=== PATIENT | female | born 1945 | race Caucasian/White ===

== ENCOUNTER 2024-09-18 12:35 | Inpatient (IN) | payer OTHER ==
[~2024-09-18] VITALS: Ht 160 cm; Wt 45.4 kg
[~2024-09-18 12:35] MED LIST: OLAN2.5 PO; OLAN5 PO; [UNRECOGNIZED DRUG - OTHER] PO; [UNRECOGNIZED DRUG - REMARK]
[2024-09-18] MEDS ORDERED: OLANZAPINE1024 PO (13:16)
[2024-09-18] MEDS ORDERED: [UNRECOGNIZED DRUG - CODE] PO (13:16)
[2024-09-18 13:38] LABS: BASOPHILS ABSOLUTE AUTO 0.02 K/mm3 (0.00-0.23); BASOPHILS PERCENT AUTO 0 % (0-2); EOSINOPHILS PERCENT AUTO 0 % (0-6); Hemoglobin 12.9 g/dL (11.5-16.0); IMMATURE GRAN ABSOLUTE AUTO 0.03 K/mm3 (0.00-0.10); IMMATURE GRAN PERCENT AUTO 0 % (0-1); LYMPHOCYTES ABSOLUTE AUTO 0.72 K/mm3 (0.84-5.20); LYMPHOCYTES PERCENT AUTO 6 % (21-46); MONOCYTES ABSOLUTE AUTO 1.11 K/mm3 (0.16-1.47); MONOCYTES PERCENT AUTO 10 % (4-13); Mean Corpuscular HGB 30.9 pg (26.0-34.0); Mean Corpuscular HGB Conc 33.1 g/dL (31.5-36.5); Mean Corpuscular Volume 94 fL (80-100); Mean Platelet Volume 9.8 fL (9.1-12.4); NEUTROPHILS ABSOLUTE AUTO 9.67 K/mm3 (1.96-9.15); NEUTROPHILS PERCENT AUTO 84 % (41-73); Platelet Count 395 K/mm3 (150-400); RDW Coefficient Variation 12.9 % (11.7-14.2); RDW Standard Deviation 44.5 fL (35.1-46.3); Red Blood Cell Count 4.17 M/mm3 (3.80-5.20); White Blood Cell Count 11.55 K/mm3 (4.00-11.30)
[2024-09-18 13:50] LABS: Source, Urine Foley catheter
[2024-09-18 14:02] LABS: Albumin, Blood 3.4 g/dL (3.4-5.0); Albumin/Globulin Ratio 0.9 (0.8-1.8); Bilirubin, Total 0.8 mg/dL (0.1-1.0); Bun/Creatinine Ratio 63.1 (12.0-20.0); Calcium, Blood 10.5 mg/dL (8.5-10.1); Creatinine, Blood 0.63 mg/dL (0.40-1.00); Globulin, Blood 3.9 g/dL (2.2-4.0); Potassium, Blood 4.2 mmol/L (3.5-5.5); Total Protein, Blood 7.3 g/dL (6.4-8.2)
[2024-09-18 14:02] LABS: Appearance, Urine Clear (Clear); Bilirubin, Urine Neg (Neg); Blood, Urine 2+ (Neg); Color, Urine Yellow (P-Yellow); Glucose Qualitative, Urine Neg (Neg); Ketones, Urine 2+ (Neg); Leukocyte Esterase, Urine Neg (Neg); Nitrite, Urine Neg (Neg); Protein, Urine 2+ (Neg); Specific Gravity, Urine 1.025 (1.003-1.022); Urobilinogen, Urine NORM (Normal)
[2024-09-18 14:10] LABS: Bacteria Few /hpf; Squamous Epithelial Cells Few /hpf (Few)
[2024-09-18] MEDS ORDERED: NS 1,000 ML IV SCH (14:25)
[2024-09-18 15:45] LABS: Lithium 0.35 mmol/L (0.60-1.20)
[2024-09-18] MEDS ORDERED: FLU VACC TS2024-25(6MOS UP)/PF 45 MCG/0.5 ML SYRINGE IM SCH (17:30)
[2024-09-18] MEDS ORDERED: Morphine Sulfate 4 MG/1 ML Injection IV PRN (17:30)
[2024-09-18] MEDS ORDERED: Lactated Ringer's 1,000 ML IV SCH ×2 (17:35)
[2024-09-18] MEDS ORDERED: OLANZapine 10 MG Tab PO SCH (18:00)
[2024-09-18 19:01] VITALS: BP 127/74
[2024-09-18] MEDS ORDERED: Tranexamic Acid 100 ML IV SCH (19:35)
[2024-09-18] MEDS ORDERED: Lithium Carbonate 300 MG Cap PO SCH (21:00)
[2024-09-18 23:44] LABS: Source, Urine Foley catheter
[2024-09-18 23:57] LABS: Bilirubin, Urine Neg (Neg); Blood, Urine 1+ (Neg); Glucose Qualitative, Urine Neg (Neg); Ketones, Urine 2+ (Neg); Leukocyte Esterase, Urine 1+ (Neg); Nitrite, Urine Neg (Neg); Protein, Urine 2+ (Neg); Urobilinogen, Urine NORM (Normal)
[2024-09-19] VITALS (20 sets, daily range): BP systolic 94–139; BP diastolic 62–80
[2024-09-19 00:03] LABS: Appearance, Urine Clear (Clear); Color, Urine Pale Yellow (P-Yellow)
[2024-09-19 00:04] LABS: Bacteria Rare /hpf; Red Blood Cells, Urine 0-2 /hpf (0-2); Squamous Epithelial Cells Not Seen /hpf (Few)
--- NOTE | 2024-09-19 05:42 | NUR ---
NOC SUMMARY- PT ARRIVED TO ROOM IN NO DISTRESS. PT HAS DENIED PAIN THROUGHOUT SHIFT. PT FOUND TO BE RETAINING URINE. PROVIDER CALLED AND ORDERED GONG TO BE PLACED. BLADDER SCAN SHOWED >900 ML. PT GONG DRAINING TO GRAVITY. PT HAD CHG WIPE DOWN, NARES AND SWISH COMPLETED. PT PROVIED SNACKS BUT HAS BEEN NPO SINCE WI. CALL LIGHT IN REACH AND BED ALARM ON.
[2024-09-19] MEDS ORDERED: CeFAZolin Sodium 2,000 MG in NS 100 ML IV SCH (06:00)
[2024-09-19] MEDS ORDERED: Vancomycin HCL 1,000 MG in NS 250 ML IV SCH (06:00)
[2024-09-19] MEDS ORDERED: Tranexamic Acid 100 ML IV SCH (06:00)
[2024-09-19 06:12] LABS: BASOPHILS ABSOLUTE AUTO 0.03 K/mm3 (0.00-0.23); BASOPHILS PERCENT AUTO 0 % (0-2); EOSINOPHILS ABSOLUTE AUTO 0.01 K/mm3 (0.00-0.68); EOSINOPHILS PERCENT AUTO 0 % (0-6); Hematocrit 36.4 % (33.0-51.0); Hemoglobin 11.8 g/dL (11.5-16.0); IMMATURE GRAN ABSOLUTE AUTO 0.05 K/mm3 (0.00-0.10); IMMATURE GRAN PERCENT AUTO 1 % (0-1); LYMPHOCYTES ABSOLUTE AUTO 1.23 K/mm3 (0.84-5.20); LYMPHOCYTES PERCENT AUTO 13 % (21-46); MONOCYTES ABSOLUTE AUTO 1.22 K/mm3 (0.16-1.47); MONOCYTES PERCENT AUTO 13 % (4-13); Mean Corpuscular HGB 30.6 pg (26.0-34.0); Mean Corpuscular HGB Conc 32.4 g/dL (31.5-36.5); Mean Corpuscular Volume 95 fL (80-100); Mean Platelet Volume 9.6 fL (9.1-12.4); NEUTROPHILS ABSOLUTE AUTO 7.15 K/mm3 (1.96-9.15); NEUTROPHILS PERCENT AUTO 74 % (41-73); Platelet Count 267 K/mm3 (150-400); RDW Coefficient Variation 13.1 % (11.7-14.2); RDW Standard Deviation 45.1 fL (35.1-46.3); Red Blood Cell Count 3.85 M/mm3 (3.80-5.20); White Blood Cell Count 9.69 K/mm3 (4.00-11.30)
[2024-09-19 06:28] LABS: Bun/Creatinine Ratio 64.2 (12.0-20.0); Calcium, Blood 9.8 mg/dL (8.5-10.1); Creatinine, Blood 0.67 mg/dL (0.40-1.00); Potassium, Blood 3.5 mmol/L (3.5-5.5)
[2024-09-19] MEDS ORDERED: Enoxaparin 40 MG/0.4 ML SYR SC SCH (09:00)
[2024-09-19] MEDS ORDERED: Lactated Ringer's 1,000 ML IV SCH (09:55)
[2024-09-19] MEDS ORDERED: CeFAZolin Sodium 2,000 MG VIAL ONE (10:18)
[2024-09-19] MEDS ORDERED: propofoL 20 ML IV ONE (10:46)
[2024-09-19] MEDS ORDERED: FentaNYL Citrate 50 MCG/ML 2 ML Injection ONE (10:47)
--- NOTE | 2024-09-19 10:52 | NUR ---
History, Chart, Medications and Allergies reviewed before start of procedure. Patient confirms NPO status and agrees with scheduled surgery. Pre-Op teaching done. Pt verbalizes understanding. GONG CATH TO GRAVITY, BRUISING NOTED TO R THIGH, PT SLEEPY BUT ORIENTED TO ALL QUESTIONS.
[2024-09-19] MEDS ORDERED: Ropivacaine 0.5% HCl/Pf 123.125 MG,EPINEPHrine HCL 0.25 MG,Ketorolac Tromethamine 15 MG... INFIL SCH (11:10)
[2024-09-19] MEDS ORDERED: Ondansetron HCl 2 MG / ML 2ML Vial IV PRN (11:30)
[2024-09-19] MEDS ORDERED: Acetaminophen 325 MG TABLET PO PRN (11:30)
[2024-09-19] MEDS ORDERED: Naloxone HCl 0.4MG / ML 1ML Vial IV PRN (11:30)
[2024-09-19] MEDS ORDERED: NS KCl 20mEq 1,000 ML IV SCH (11:30)
[2024-09-19] MEDS ORDERED: Ondansetron 4 MG TAB PO PRN (11:35)
[2024-09-19] MEDS ORDERED: FLU VACC TS2024-25(6MOS UP)/PF 45 MCG/0.5 ML SYRINGE IM SCH (11:35)
[2024-09-19] MEDS ORDERED: HYDROcodone 5-APAP 325 TAB PO PRN (11:35)
[2024-09-19] MEDS ORDERED: Bisacodyl 10 MG Supp PR PRN (11:35)
[2024-09-19] MEDS ORDERED: HYDROmorphone HCl/Pf 1MG SYR IV PRN (11:40)
[2024-09-19] MEDS ORDERED: Metoclopramide HCl 10 MG Tab PO PRN (11:40)
[2024-09-19] MEDS ORDERED: Magnesium Hydroxide Conc 10 ML UDC PO PRN (11:40)
[2024-09-19] MEDS ORDERED: Ketorolac Tromethamine 15mg Vial IV PRN (11:45)
[2024-09-19] MEDS ORDERED: Naproxen 500 MG Tab PO PRN (11:50)
[2024-09-19] MEDS ORDERED: Dexamethasone Sod Phos 10 MG/ML 1ML VIAL ONE (11:57)
[2024-09-19] MEDS ORDERED: Ondansetron HCl 2 MG / ML 2ML Vial ONE (11:57)
[2024-09-19] MEDS ORDERED: Sugammadex Sodium 200 MG/2ML SDV (100 MG/ML) ONE (13:06)
[2024-09-19] MEDS ORDERED: Phenylephrine HCl 10mg/ml 1 ml Vial ONE (13:16)
--- NOTE | 2024-09-19 13:42 | NUR ---
09/19/24 1342 Arnaldo,Elisa SKIN TEAR NOTED ON PATIENT'S LEFT HIP PRIOR TO TRANSFERING FROM OR TABLE TO BED AFTER SURGERY. SKIN TEAR WAS CLEANED WITH CHLORAHEXIDINE AND DRESSED WITH A MEPILEX DRESSING.
[2024-09-19] MEDS ORDERED: Tranexamic Acid 100 ML IV ONE (14:50)
--- NOTE | 2024-09-19 17:46 | NUR ---
PATIENT IS ALERT AND ORIENTED, SOME FORGETFULLNESS. POD 0 OF RIGHT AVIVA HIP. PATIENT IS TOLERATING APPLESAUCE AND WATER SO FAR. NO COMPLAINTS OF PAIN. BUSTER HOSE AND SCDS IN PLACE. UPDATE GIVEN TO BOTH OF THE PATIENTS SISTERS OVER THE PHONE. SHE HAS NOT WORKED WITH PT OR OT TODAY. BEDREST AT THIS TIME. GONG IN PLACE, WITH AN ORDER TO DC ON POD 2. ON RA. VSS. WILL CONTINUE TO MONITOR
[2024-09-19] MEDS ORDERED: Docusate Sodium 100 MG Cap PO SCH (21:00)
[2024-09-20 04:54] VITALS: BP 102/63
[2024-09-20 05:12] LABS: BASOPHILS ABSOLUTE AUTO 0.01 K/mm3 (0.00-0.23); BASOPHILS PERCENT AUTO 0 % (0-2); EOSINOPHILS PERCENT AUTO 0 % (0-6); Hematocrit 28.8 % (33.0-51.0); Hemoglobin 9.5 g/dL (11.5-16.0); IMMATURE GRAN ABSOLUTE AUTO 0.03 K/mm3 (0.00-0.10); IMMATURE GRAN PERCENT AUTO 0 % (0-1); LYMPHOCYTES ABSOLUTE AUTO 0.89 K/mm3 (0.84-5.20); LYMPHOCYTES PERCENT AUTO 10 % (21-46); MONOCYTES ABSOLUTE AUTO 1.16 K/mm3 (0.16-1.47); MONOCYTES PERCENT AUTO 14 % (4-13); Mean Corpuscular HGB 31.4 pg (26.0-34.0); Mean Corpuscular Volume 95 fL (80-100); Mean Platelet Volume 9.7 fL (9.1-12.4); NEUTROPHILS ABSOLUTE AUTO 6.46 K/mm3 (1.96-9.15); NEUTROPHILS PERCENT AUTO 76 % (41-73); Platelet Count 190 K/mm3 (150-400); RDW Coefficient Variation 12.9 % (11.7-14.2); RDW Standard Deviation 44.8 fL (35.1-46.3); Red Blood Cell Count 3.03 M/mm3 (3.80-5.20); White Blood Cell Count 8.55 K/mm3 (4.00-11.30)
[2024-09-20 05:49] LABS: Bun/Creatinine Ratio 55.6 (12.0-20.0); Calcium, Blood 9.2 mg/dL (8.5-10.1); Creatinine, Blood 0.7 mg/dL (0.40-1.00); Magnesium, Blood 2.3 mg/dL (1.6-2.4); Potassium, Blood 3.8 mmol/L (3.5-5.5)
--- NOTE | 2024-09-20 05:57 | NUR ---
SHIFT SUMMARY AOX3-SELF, PLACE, SITUATION. FORGETFUL @TIMES & CAN BE TANGETABLE W/CONVERSATION. POD 1-R AVIVA HIP. SURGICAL PRESSURE TAPE INTACT, NO DRAINAGE NOTED. PT HASNT WORKED W/PT. REPORTS BHAKTA & ALLOVER ACHYNESS. MEDICATED W/NORCO & TYLENOL, THEN PAIN LEVEL DECREASED TO A 2/10. DENIES N/V. CAP REFILL <3 SEC, STRONG PEDIAL PULSE. CALL LIGHT & BED ALARM FOR SAFEY.
--- NOTE | 2024-09-20 06:56 | NUR ---
PT INFORMED THIS RN THAT SHE FEELS WEAK & STATES "IT'S PROBABLY BECAUSE I WASNT EATING MUCH AT HOME." "I CANT AFFORD MEAT BECAUSE OF THE COST, AND IT'S ONLY ME SO I DONT COOK MUCH OR EAT MUCH." INFORMED PC ANALYST ZULEIKA Adorno
[2024-09-20 07:28] VITALS: BP 108/63
[2024-09-20] MEDS ORDERED: Enoxaparin 30 MG/0.3 ML SYR SC SCH (09:00)
[2024-09-20 14:48] VITALS: BP 111/75
--- NOTE | 2024-09-20 19:22 | NUR ---
SHIFT SUMMARY POD1 R POSTERIOR AVIVA HIP, A/OX4, VSS, TOLERATING PO, WORKED WITH THERAPY BUT WAS UNABLE TO GET HER OOB, SHE REPORTS FEELING A HEADACHE AND PAIN TODAY BUT SHE DID NOT INITIALLY REPORT THIS TO NURSING STAFF, FAMILY DISCUSSED HER HAVING SOME PAIN WITH STAFF WHO WENT AND TALKED TO HER AND EDUCATED HER ON THE AVAILABILITY OF MEDICATIONS FOR PAIN. PT ASKED THIS RN TO ADD TO HER CHART THAT SHE HAS BEEN FEELING MORE UNSTABLE ON HER FEET LATELY WHICH IS EVIDENCED BY HER FALL AT HOME. PATIENT ALSO WANTED THIS RN TO NOTE IN HER CHART THAT SHE FEELS LIKE SHE HAS BEEN STAMMERING LATELY. NO ACUTE EVENTS THIS SHIFT, CALL LIGHT IN REACH.
[2024-09-20 19:23] VITALS: BP 115/67
[2024-09-21 04:16] VITALS: BP 140/87
--- NOTE | 2024-09-21 05:29 | NUR ---
SHIFT SUMMARY POD 2 S/P RIGHT AVIVA HIP. DRESSING TO RIGHT HIP CDI. IV REMOVED AND REPLACED IN LEFT HAND, SL NOW. PT BROCK PO INTAKE AND ENCOURAGED TO DRINK. PAIN MANAGED PER EMAR AND ICE THERAPY. EASILY CONFUSED. VSS. GONG CATH REMOVED, AWAITING POST REMOVAL VOID. PT CURRENTLY RESTING WIHT CALL LIGHT IN REACH AND BED ALARM ON. WILL CONTINUE TO CARE FOR PATIENT AND GIVE REPORT TO ISAC WILLSON
[2024-09-21 07:12] VITALS: BP 135/79
--- NOTE | 2024-09-21 07:40 | NUR ---
MENTATION PT STATES HEAD PAIN R/T FALL. PT HEAD RESTING AGAINST METAL RAILING WITHOUT PADDING. PT REPOSITIONED c HEAD RESTING ON PILLOW IN CENTER OF BED. PT REPORTS SOME RELIEF c POSITION CHANGE. PT STATES 'I CAN'T LIFT MY HEAD UP. THE LORD TOLD ME I WILL BE ABLE TO MOVE IT ON SUNDAY AT NOON.' THIS RN PERFORMED NEURO ASSESSMENT, NO CHANGES FROM PREVIOUS ASSESSMENTS NOTED. PT COMPLAINS OF PAIN TO FEET, STATING SOCKS ARE 'TOO TIGHT.' SOCKS CHANGED FOR PT COMFORT TO LARGER NON-SLIP SOCKS. PT STATES 'DID YOU KNOW TODAY IS THE DAY OF 1000 STEPS AND JOSH IS READY FOR YOU.' PT DOES NOT REPORT PAIN TO HIP AT THIS TIME. PT STATES 'I CAN'T GET UP YET. IT'S JUST NOT POSSIBLE.' PT EDUCATED ON EFFECTIVENESS OF EARLY AMBULATION POST SURGERY. PT NON-RECEPTIVE AT THIS TIME.
[2024-09-21 14:44] VITALS: BP 132/76
--- NOTE | 2024-09-21 17:52 | NUR ---
URINATION PT HAS NOT VOIDED SINCE GONG D/C @ APPROX 0430 THIS AM. AT APPROX 1030 AND 1150 AM, FLEX O WRITER OPERATOR OFFERED PT TO ATTEMPT VOIDING USING A BEDPAN. PT DENIED. PT EDUCATED ON IMPORTANCE OF URINATION. AT APPROX 0230, PT REFUSED VOIDING ATTEMPTS AGAIN. PT BLADDER SCANNED c A TOTAL OF 571 IN BLADDER. PT THEN EDUCATED ON NEED FOR STRAIGHT-CATH TO DRAIN URINE. PT REFUSED STRAIGHT CATH. PT THEN ACCEPTED A BED FAM AND STATED "I'LL TRY TO GO BUT I CAN TELL YOU IT'S NOT GOING TO HAPPEN." PT REMOVED FROM BEDPAN APPROX 20 MINS LATER c NO VOID. PT THEN BEGAN ASKING THIS RN QUESTIONS, SUCH "DO YOU KNOW WHAT A HORSE IS?" PT RELAYED A STORY ABOUT A NEIGHBOR'S HORSE NOT REQUIRING CLOSE URINE MONITORING AND PT DOES NOT UNDERSTAND WHY WE ARE "SO CONCERENED" WITH HER BLADDER. PT EDUCATED ON ANATOMY DIFFERENCES BETWEEN A HORSE AND A HUMAN. PT EDUCATED ON RISKS OF DISTENDED BLADDER, SPECIFICALLY POST-OP AND WITH LIMITED MOBILITY. THIS RN THEN OFFERED PT TO TRY BSC. PT REFUSED STATING "I CAN'T DO THAT. I CAN'T LIFT MY HEAD. MY LEGS DON'T MOVE." PT REFUSING ALL CARE AT THIS TIME. PT BLADDER SCANNED AGAIN AT 1754 c 702mL IN BLADDER. PT CONTINUES TO REFUSE STRAIGHT-CATH FOR VOIDING. PT STATES "I KNOW MY RIGHTS, I KNOW I CAN REFUSE. I DON'T WANT YOU POKING ME WITH ANYTHING." CONTINUED EDUCATION WITH PATIENT RELATED TO REFUSAL RISKS. PT STATES "WHAT DO THEY DO ON [place]? THEY HOLD IT FOR DAYS. I DON'T HAVE TO GO FOR DAYS. MY DOCTOR WANTS TO SEE ME ON SUNDAY, HE CAN DEAL WITH IT THEN." CONTINUED EDUCATION PROVIDED TO PT. PT AGRESSIVELY REFUSING.
--- NOTE | 2024-09-21 17:55 | NUR ---
DR CONSULT DR. GONZÁLES NOTIFIED OF PT URIATION PER PREVIOUS NOTE. NO NEW ORDERS. DR STATES "TRY AGAIN IN A LITTLE BIT, YOU KNOW HOW SHE IS."
[2024-09-21] MEDS ORDERED: Diazepam 5 MG / ML 2ML SYR IV ONE (19:25)
--- NOTE | 2024-09-21 19:46 | NUR ---
SHIFT SUMMARY POD 2 R POSTERIOR AVIVA HIP. VSS. SUSHMA & AQUACEL TO R HIP C/D/I c SCANT SHADOWING. MEPILEX TO L HIP & UPPER BACK C/D/I. PT TOLERATING REGULAR DIET. PT REPORTS DIFFICULTY c "REACHING FOOD" AND MOVING HER ARMS. THIS RN VISUALIZED APPROPRIATE MOTOR OF PT BILAT UPPER EXTREMITIE SKILLS c IND USE OF EATING UTENSILS/CUPS/CALL LIGHT/PHONE. PT REFUSED AMBULATION T/O DAY. PT ABLE TO LIFT HEAD IND, DENIES N/T IN BILAT LOWER EXTREMITIES, BRISK CAP REFILL. PT REQUIED 2 PERSON MAX ASSIST TO ROLL IN BED, PT MINIMALLY COMPLIANT c CARE. THE DAY PROGRESSED, PT MENATION BECAME MORE CONFUSED c MORE FREQUENT DELUSIONS. TOWARDS END OF SHIFT, PT REFUSED ALL CARE FROM THIS RN STATING, "I THINK YOU ARE GOING TO GIVE UP ON ME. I AM DONE WITH YOUR PRODDING. I DON'T WANT YOU IN HERE ANYMORE. YOU'RE NOT TOUCHING ME FOR ANYTHING." THIS RN ATTEMPTED PT EDUCATION c ALL INTERACTIONS, PT REFUSED AND INCREASES IN AGITATION WHEN ATTEMPTING CARE. SEE PREVIOUS NOTES FOR VOIDING STATUS. PT REFUSING BOWEL CARE, PT STATES "I WON'T TAKE THAT STUFF BECAUSE IT'S GOING TO BE ILLEGAL SOON." PT REPORTS PAIN TO R HIP & FEET, REFUSES PAIN MEDICATIONS PER EMAR. TOLERATED ICE PACK TO R HIP UNTIL APPROX 1400. BED ALARM IN USE. CALL LIGHT IN REACH, BED IN LOWEST POSITION, REPORT GIVEN TO NOC RN.
[2024-09-21 19:58] VITALS: BP 135/84
[2024-09-22 05:00] VITALS: BP 121/76
[2024-09-22 05:25] LABS: Hematocrit 30.6 % (33.0-51.0); Hemoglobin 9.8 g/dL (11.5-16.0); Mean Corpuscular HGB 30.4 pg (26.0-34.0); Mean Corpuscular Volume 95 fL (80-100); Platelet Count 207 K/mm3 (150-400); RDW Coefficient Variation 12.6 % (11.7-14.2); RDW Standard Deviation 43.9 fL (35.1-46.3); Red Blood Cell Count 3.22 M/mm3 (3.80-5.20); White Blood Cell Count 9.77 K/mm3 (4.00-11.30)
[2024-09-22 05:51] LABS: Bun/Creatinine Ratio 31.3 (12.0-20.0); Calcium, Blood 8.9 mg/dL (8.5-10.1); Creatinine, Blood 0.51 mg/dL (0.40-1.00); Potassium, Blood 3.2 mmol/L (3.5-5.5)
[2024-09-22 07:11] LABS: Source, Urine Foley catheter
[2024-09-22 07:17] LABS: Appearance, Urine Clear (Clear); Bilirubin, Urine Neg (Neg); Blood, Urine 3+ (Neg); Color, Urine Yellow (P-Yellow); Glucose Qualitative, Urine Neg (Neg); Ketones, Urine Neg (Neg); Leukocyte Esterase, Urine Neg (Neg); Nitrite, Urine Neg (Neg); Protein, Urine Neg (Neg); Urobilinogen, Urine NORM (Normal)
--- NOTE | 2024-09-22 07:22 | NUR ---
SHIFT SUMMARY POD 3 S/P RIGHT AVIVA HIP. DRESSINGS CDI. PT REFUSED REPOSITIONING AND ICE THERAPY. DECLINED NEED FOR PAIN MEDICATION. TOLERATING PO INTAKE, DENIES N/V. UNABLE TO VOID, GONG PLACED PER ORDER FOR BLADDER TRAINING. UA SENT. IV IN LEFT HAND SL. A/OX 2-3, CONFUSED AND DELUSION AT TIMES DURING NIGHT. PT REFUSED TO GET OUT OF BED. PLAN TO WORK WITH THERAPY TODAY. PT CURRENTLY RESTIING IN BED WT CALL LIGHT IN REACH. REPORT GIVEN TO DAY RN.
[2024-09-22 07:27] LABS: White Blood Cells, Urine 0-2 /hpf (0-5)
[2024-09-22 07:28] LABS: Bacteria Rare /hpf; Squamous Epithelial Cells Few /hpf (Few)
[2024-09-22 07:30] VITALS: BP 129/84
[2024-09-22] MEDS ORDERED: Potassium Chloride 20 MEQ TabCR PO ONE (13:00)
[2024-09-22 14:45] VITALS: BP 123/69
--- NOTE | 2024-09-22 18:47 | NUR ---
SHIFT SUMMARY PT IS POD3 FOR R AVIVA HIP. 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 PT IS REFUSING TO GET OOB OR SIT ON EDGE OF BED, REFUSES REPOSITIONING AT TIMES. PT DID ALLOW STAFF TO CHANGE BEDDING AND CHANGE ATTENDS AT END OF SHIFT. GONG IN PLACE DRAINING YELLOW URINE, CLAMPED AT 1830 FOR BLADDER TRAINING, WILL REPORT TO ONCOMING RN. DRESSING ON R HIP C/D/I. SOME REDNESS ON COCCYX, ENCOURAGED REPOSITIONING AND APPLIED PREVENTATIVE MEPILEX. DRESSING C/D/I. PT REFUSING NARCOTICS, DID TAKE TYLENOL ONCE BUT REFUSED PAIN MEDS REST OF SHIFT SAYING IT IS "NOT GOD'S WILL". PT TOLERATING REG DIET AND DRINKING SMALL AMOUNT OF FLUIDS. PT REFUSING TO TAKE SOME MEDICATIONS, DOCUMENTED IN EMAR. BED ALARM ON, PT USING CALL LIGHT APPROPRIATELY.
[2024-09-22 19:18] VITALS: BP 130/78
--- NOTE | 2024-09-23 04:35 | NUR ---
SHIFT SUMMARY POD 4 RIGHT AVIVA HIP, AQUACEL DRESSING CDI. BROCK REGULAR DIET. DENIES NEED FOR PAIN MEDICATION T/O SHIFT. IV SL IN LEFT HAND. PT REFUSED REPOSITIONING BY MANAGER STUDY, RN AND OTHER STAFF MEMBERS. BLADDER TRAINING CONTINUED WITH GONG, CLEAR YELLOW URINE NOTED. DECLINES TO WEAR SCD'S. PT DELUSIONAL AT TIMES, MAKING STATEMENTS SUCH , "THE DIETRICH IS COMING TO SEE ME LATER TODAY." MEDICATED PER EMAR, ABLE TO TAKE MEDS WHOLE. PT RESTING IN BED WITH CALL LIGHT IN REACH AND ABLE TO MAKE NEEDS KNOWN. WILL CONTINUE TO CARE FOR PATIENT AND GIVE REPORT TO ONCOMING RN.
[2024-09-23 04:36] LABS: BASOPHILS ABSOLUTE AUTO 0.05 K/mm3 (0.00-0.23); BASOPHILS PERCENT AUTO 0 % (0-2); EOSINOPHILS ABSOLUTE AUTO 0.22 K/mm3 (0.00-0.68); EOSINOPHILS PERCENT AUTO 2 % (0-6); Hematocrit 32.4 % (33.0-51.0); Hemoglobin 10.3 g/dL (11.5-16.0); IMMATURE GRAN ABSOLUTE AUTO 0.12 K/mm3 (0.00-0.10); IMMATURE GRAN PERCENT AUTO 1 % (0-1); LYMPHOCYTES ABSOLUTE AUTO 1.57 K/mm3 (0.84-5.20); LYMPHOCYTES PERCENT AUTO 14 % (21-46); MONOCYTES ABSOLUTE AUTO 0.88 K/mm3 (0.16-1.47); MONOCYTES PERCENT AUTO 8 % (4-13); Mean Corpuscular HGB 30.5 pg (26.0-34.0); Mean Corpuscular HGB Conc 31.8 g/dL (31.5-36.5); Mean Corpuscular Volume 96 fL (80-100); Mean Platelet Volume 9.9 fL (9.1-12.4); NEUTROPHILS ABSOLUTE AUTO 8.28 K/mm3 (1.96-9.15); NEUTROPHILS PERCENT AUTO 75 % (41-73); Platelet Count 267 K/mm3 (150-400); RDW Coefficient Variation 12.7 % (11.7-14.2); Red Blood Cell Count 3.38 M/mm3 (3.80-5.20); White Blood Cell Count 11.12 K/mm3 (4.00-11.30)
[2024-09-23 04:43] VITALS: BP 155/83
[2024-09-23 05:03] LABS: Albumin, Blood 2.2 g/dL (3.4-5.0); Albumin/Globulin Ratio 0.6 (0.8-1.8); Bilirubin, Total 0.3 mg/dL (0.1-1.0); Bun/Creatinine Ratio 32.3 (12.0-20.0); Calcium, Blood 9.4 mg/dL (8.5-10.1); Creatinine, Blood 0.53 mg/dL (0.40-1.00); Globulin, Blood 3.5 g/dL (2.2-4.0); Potassium, Blood 3.9 mmol/L (3.5-5.5); Total Protein, Blood 5.7 g/dL (6.4-8.2)
[2024-09-23 07:11] VITALS: BP 134/88
[2024-09-23 12:02] LABS: Lithium 1.01 mmol/L (0.60-1.20)
[2024-09-23 15:02] VITALS: BP 121/84
--- NOTE | 2024-09-23 15:10 | NUR ---
[facility] CONTACTED TO RECONCILE PT'S MEDS, PT IS ON OLANZAPINE 10MG PO AT BEDTIME AND LITHIUM 300MG PO BID PER KEMI CORONA AT [facility].
--- NOTE | 2024-09-23 15:27 | NUR ---
Patient is sitting up in bed and alert (and eating strawberry Ice Cream.) She tells me about the events that led to the breaking of her hip, about her family that are and her friends that are alive and very supportive. Patient is pleasant and has a sarcastic,dry and very funny sense of humor which made for an interesting visit. I provided therapeutic listening and prayer. Patient provided prayer after I concluded which was quiet nice. Patient showed signs of an elevated mood. I will continue to remain available to patient and family (she does have a sister who is alive).
--- NOTE | 2024-09-23 19:21 | NUR ---
SHIFT SUMMARY POD4 FOR R AVIVA HIP. AQUACEL C/D/I, CAP REFILL IN R TOES 2 SECS, PT CAN WIGGLE TOES AND DENIES N/T. PT CONTINUES TO BE CONFUSED, SCHIZOPHRENIC AT BASELINE. PT'S SISTER CALLED W/ CONCERNS REGARDING INCREASED CONFUSION, HOME MEDS WERE CONFIRMED BY CHARGE NURSE W/ CORBIN. THIS RN SPOKE W/ DR. WHITLEY REGARDING PT'S MENTAL STATUS AND REPEAT LITHIUM TESTING WAS ORDERED. FOLLOWED UP W/ SISTER ROHITH AND ADDRESSED CONCERNS. ALSO NOTIFIED DR. WHITLEY OF TACHYCARDIA IN THE LOW 100'S TODAY, NO ORDERS RECIEVED, PT DENIES CHEST PAIN/PRESSURE AND OTHER VITALS ARE STABLE. PT REFUSING SOME CARE, NEEDS REPETITIVE EDUCATION REGARDING ALL MEDS BEFORE SHE WILL AGREE TO TAKE THEM. ENCOURAGED REPOSITION AND AMBULATION BUT PT IS STILL REFUSING TO WORK W/ THERAPY DUE TO "PAIN AND STIFFNESS". HOWEVER, PT IS ALSO REFUSING PAIN MEDS BESIDES ONE DOSE OF TYLENOL PER EMAR THIS SHIFT THAT DID LOWER PT'S PAIN LEVEL. PT ALSO INTERMITTENTLY REFUSING REPOSITIONING. PREVENTATIVE MEPILEX IN PLACE ON COCCYX. GONG IN PLACE DRAINING YELLOW URINE, BLADDER TRAINING PERFORMED ORDERED. BED ALARM ON, PT USING CALL LIGHT APPROPRIATELY, REPORT TO ONCOMING RN MATTHEW.
[2024-09-23 19:46] VITALS: BP 141/74
[2024-09-24 03:36] VITALS: BP 115/71
[2024-09-24 05:03] LABS: BASOPHILS ABSOLUTE AUTO 0.05 K/mm3 (0.00-0.23); BASOPHILS PERCENT AUTO 1 % (0-2); EOSINOPHILS ABSOLUTE AUTO 0.13 K/mm3 (0.00-0.68); EOSINOPHILS PERCENT AUTO 1 % (0-6); Hematocrit 32.7 % (33.0-51.0); Hemoglobin 10.5 g/dL (11.5-16.0); IMMATURE GRAN PERCENT AUTO 1 % (0-1); LYMPHOCYTES ABSOLUTE AUTO 1.26 K/mm3 (0.84-5.20); LYMPHOCYTES PERCENT AUTO 11 % (21-46); MONOCYTES ABSOLUTE AUTO 0.97 K/mm3 (0.16-1.47); MONOCYTES PERCENT AUTO 9 % (4-13); Mean Corpuscular HGB 30.3 pg (26.0-34.0); Mean Corpuscular HGB Conc 32.1 g/dL (31.5-36.5); Mean Corpuscular Volume 94 fL (80-100); Mean Platelet Volume 9.8 fL (9.1-12.4); NEUTROPHILS ABSOLUTE AUTO 8.56 K/mm3 (1.96-9.15); NEUTROPHILS PERCENT AUTO 77 % (41-73); Platelet Count 335 K/mm3 (150-400); RDW Coefficient Variation 12.8 % (11.7-14.2); RDW Standard Deviation 44.6 fL (35.1-46.3); Red Blood Cell Count 3.47 M/mm3 (3.80-5.20); White Blood Cell Count 11.07 K/mm3 (4.00-11.30)
--- NOTE | 2024-09-24 05:15 | NUR ---
SHIFT SUMMARY POD 5 R POSTERIOR AVIVA HIP. NO ACUTE CHANGES OVERNIGHT. A&0 x2-3, MOSTLY COOPERATIVE c CARE. VSS. PT TOLERATING ORALS, ENC PO INTAKE. GONG DRAINING YELLOW URINE TO GRAVITY, BLADDER TRAINING PER PROTOCOL. PT ABLE TO MODERATELY REPOSITION IN BED IND, BED ALARM IN USE. PT REPORTS PAIN TOLERABLE WITHOUT MEDICATION MANAGEMENT OVERNIGHT, NON-PHARM INTERVENTIONS ONLY. AQUACEL TO R HIP C/D/I, PREVENTATIVE MEPILEX TO COCCYX IN USE. ENCOURAGED TO WORK WITH PHYSCIAL THERAPY TODAY. ANTICIPATED DISCHARGE TO SNF. CALL LIGHT IN REACH, BED IN LOWEST POSITION, WILL REPORT TO DAY RN.
[2024-09-24 07:23] VITALS: BP 126/81
[2024-09-24] MEDS ORDERED: DOCU100 PO (11:18)
[2024-09-24] MEDS ORDERED: Acetaminophen650 M1 PO (11:18)
[2024-09-24 14:55] VITALS: BP 132/68
--- NOTE | 2024-09-24 18:01 | NUR ---
SHIFT SUMMARY PT REMAINED ALERT AND RESPONDED TO INTERNAL STIMULI THROUGHT THE DAY. PT EXPRESSED SOME CONCERN REGARDING HER MEDICATIONS AND REFUSED COLACE AGAIN. IT WAS NOTED THAT PT HAD NO BM SINCE HOSPITAL ADMISSION AND CARE MANAGEMENT WAS NOTIFIED. THEREFORE, TRANSFER TO SNF WAS DELAYED. PT HAD GONG CATH REMOVED AT 1230, HAS NOT VOIDED. BLADDER SCAN AT 1613 WAS 233. PT HAD MULTIPLE FRIENDS VISIT HER THROUGHOUT THE DAY. PT DID TRY TO GET OUT OF BED AT ONE POINT BUT WAS EASILY REDIRECTABLE. BED ALARM REMAINS IN PLACE. AQUACEL DRSG TO R HIP CHANGED DUE TO IT COMING OFF.
--- NOTE | 2024-09-24 20:02 | NUR ---
BOWEL CARE PT HAS NOT HAD BM FOR 6 DAYS. THIS RN OFFERED SCHEDULED COLACE, PT REFUSED TO TAKE. THEN OFFERED PT SOME MILK OF MAGNESUIM, PT ALSO REFUSED. STATES " I DONT NEED ANYTHING LIKE THAT" PT EDUCATED ON HOW SHE HASNT GONE TO THE BATHROOM FOR MULTIPLE DAYS. PT STILL REFUSING ANY TYPE OF BOWEL CARE. WILL OFFER PRUNE JUICE DURING THE NIGHT. NO OTHER CONCERNS AT THIS TIME, CALL LIGHT WITHIN REACH.
[2024-09-24 21:40] VITALS: BP 116/74
--- NOTE | 2024-09-25 04:38 | NUR ---
SHIFT SUMMARY POD 6 R AVIVA HIP PT RESTED T/O SHIFT. DENIES ANY PAIN. TOLERATING PO INTAKE. PT NEEDED TO BE STRAIGHT CATHED TONIGHT. HAS NOT VOIDED SINCE DOING SO. PT HAS ATTMEPTED USING BEDPAN BUT NO SUCCESS. PT ALSO REFUSING ALL FORMS OF BOWEL CARE. PT EDUCATED ON HOW SNF WILL NOT TAKE HER UNTIL SHE HAS BOWEL MOVEMENT. PT STILL REFUSING STOOL SOFTENERS AT THIS TIME. DRESSING TO R HIP C/D/I. VSS. NO OTHER CONCERNS AT THIS TIME, CALL LIGHT WITHIN REACH
[2024-09-25 04:54] VITALS: BP 99/62
[2024-09-25 07:16] VITALS: BP 116/56
[2024-09-25 11:21] VITALS: BP 104/55
--- NOTE | 2024-09-25 13:40 | NUR ---
Patient is sitting up in bed and alert. She tells me about her delay in D/C and her concern about the pain in her leg (she feels the pain is too much to overcome when she tries to move her leg). She tells me that this experience has created an opportunity to increase in her devotion and connection to God. She welcomes prayer and asks for prayer that her body would get the things moving that are needed for D/C. I gladly provided prayer and patient responded well and stated that the prayer and visit was encouraging. I will continue to remain available to patient and family.
[2024-09-25 14:32] VITALS: BP 117/61
--- NOTE | 2024-09-25 19:25 | NUR ---
SHIFT SUMMARY PT TRANSFERED FROM 217 THIS SHIFT. PT HAS NOT HAD A BM IN 6DAYS. PT WAS GIVEN MEDICATION FOR BOWEL MANAGEMENT THIS SHIFT WITH NO BM NOTED. PT IS A&OX 3-4. PT REMAINED IN BED THIS SHIFT AND NOTED TO BE AN ASSIST X2 WITH REPOSITIONING. PT ALSO NOTED TO BE JAUNDAUCE LOOKING AND LATHARGIC THIS SHIFT.
[2024-09-25 19:36] VITALS: BP 107/62
[2024-09-25 22:25] LABS: Source, Urine Straight Cath
[2024-09-25 22:27] LABS: Appearance, Urine Hazy (Clear); Bilirubin, Urine Neg (Neg); Blood, Urine 4+ (Neg); Color, Urine Yellow (P-Yellow); Glucose Qualitative, Urine Neg (Neg); Ketones, Urine Neg (Neg); Leukocyte Esterase, Urine 1+ (Neg); Nitrite, Urine Pos (Neg); Protein, Urine 1+ (Neg); Urobilinogen, Urine NORM (Normal); pH, Urine 6.5 (5.0-8.0)
[2024-09-25 23:15] LABS: Bacteria Many /hpf; Squamous Epithelial Cells Few /hpf (Few)
[2024-09-26 04:15] VITALS: BP 114/65
[2024-09-26 07:15] VITALS: BP 108/66
--- NOTE | 2024-09-26 07:19 | NUR ---
SHIFT SUMMARY PATIENT IS ALERT AND ORIENTED X2. PATIENT HAS HAD NO ACUTE EVENTS THIS SHIFT. PATIENT HAS HAD A BOWEL MOVEMENT THIS SHIFT. PATIENT HAS BEEN SLEEPING MOST OF SHIFT. PATIENT HAS HAD NO COMPLAINTS OF PAIN, NAUSEA, SOB OR VOMITTING THIS SHIFT. PATIENT HAS BEEN LETHARGIC THIS SHIFT.
[2024-09-26 13:26] LABS: SARS-Cov-2 (COVID-19) PCR, MMC NEGATIVE (NEGATIVE)
--- NOTE | 2024-09-26 14:57 | NUR ---
REPORT CALLED TO IVAN HUNTER AT [facility] ON 09/26/24 AT 14:57. RN GAVE AN UPDATE TO THE PATIENT'S SISTER ROHITH AT 1:30 TODAY AND LET HER KNOW OF THE PATIENT'S TRANSFER TO [facility] AND WHAT TIME. RN AND NEW ORDER CLERK TRANSFERRED THE PATIENT UP TO THE CHAIR 2PA WITH [facility]. WILL CONTINUE TO MONITOR WHILE WAITING FOR THE RIDE.
== END 2024-09-26 15:19 | disposition hospice, inpatient (51) | DRG 522 ==
LOC: ER 12:35 → SURS 17:26 → MEDS 17:26 → SURS 18:50 → ER 09-19 11:00 → MEDS 09-25 11:19
PROVIDERS: Emergency Medicine; Internal Medicine; Nurse Practitioner Acute Care; Orthopaedic Surgery; Student in an Organized Health Care Education/Training Program; ADMIT Family Medicine
PROC: 0SRR0JA Replacement of Right Hip Joint, Femoral Surface with Synthetic Substitute, Uncemented, Open Approach (ICD-10-PCS; principal; 2024-09-19 10:00)
DX: S72.001A Fracture of unspecified part of neck of right femur, initial encounter for closed fracture (principal); E87.20 Acidosis, unspecified; D62 Acute posthemorrhagic anemia; F05 Delirium due to known physiological condition; F20.9 Schizophrenia, unspecified; Z66 Do not resuscitate; E86.0 Dehydration; E87.6 Hypokalemia; R33.9 Retention of urine, unspecified; E11.9 Type 2 diabetes mellitus without complications; Z88.8 Allergy status to other drugs, medicaments and biological substances; Z85.3 Personal history of malignant neoplasm of breast; Z90.13 Acquired absence of bilateral breasts and nipples; Z60.2 Problems related to living alone; F03.90 Unspecified dementia, unspecified severity, without behavioral disturbance, psychotic disturbance, mood disturbance, and anxiety; Y92.009 Unspecified place in unspecified non-institutional (private) residence as the place of occurrence of the external cause; W18.30XA Fall on same level, unspecified, initial encounter
CPT/HCPCS: 36415; 51701; 51702; 72040; 72170; 73502; 73630; 80048; 80053; 80178; 81001; 82550; 83605; 83735; 85025; 85027; 87040; 87071; 87075; 87086; 87205; 88305; 88311; 93005; 93010; 94762; 96360; 96361; 97110; 97162; 97166; 97530; 97535; 99285-25; A9270; C1776; J0171; J0690; J0735; J1100; J1650; J1885; J2371; J2405; J2704; J2795; J3010; J3360; J3370; J3480; J7030; J7050; J7120; U0002